=== PATIENT | female | born 1980 | race Caucasian/White ===

== ENCOUNTER 2016-08-03 15:01 | Emergency (ER) | payer OTHER ==
[~2016-08-03] VITALS: Ht 160 cm; Wt 59.4 kg
[2016-08-03] MEDS ORDERED: IMODIUM A-D2 M2 PO (17:12)
[2016-08-03] MEDS ORDERED: ZOFRAN ODT4 MG PO (17:12)
[2016-08-03 17:44] VITALS: BP 110/74
== END 2016-08-03 17:51 | disposition home or self-care (01) ==
LOC: EME 15:01
DX: F11.23 Opioid dependence with withdrawal (principal); R11.2 Nausea with vomiting, unspecified; R19.7 Diarrhea, unspecified; M79.1 Myalgia; F17.200 Nicotine dependence, unspecified, uncomplicated
CPT/HCPCS: 99281; 99284

== ENCOUNTER 2016-08-04 13:15 | Inpatient (IN) | payer OTHER ==
[~2016-08-04] VITALS: Ht 160 cm; Wt 60.6 kg
[~2016-08-04 13:15] MED LIST: IMODIUM A-D2 M2 PO; ZOFRAN ODT4 MG PO
[2016-08-04 15:57] LABS: HEMATOCRIT 40.5 % (36.0-46.0); MCH 28.6 PG (29.0-34.0); MCHC 33.1 G/DL (30.0-36.0); MCV 86.5 FL (83-99); MEAN PLAT.VOLUME 10.8 uM^3 (9.5-12.4); PLATELET COUNT 338 K/uL (156-360); RBC DIS.WIDTH-CV 14.7 % (11.8-14.6); RBC DIS.WIDTH-SD 46.7 % (39-53); RED BLOOD COUNT 4.68 M/uL (3.80-5.20); WHITE BLOOD COUNT 9.4 K/uL (4.1-10.2)
[2016-08-04 16:05] LABS: CHLORIDE 110 mEq/L (99-109); POTASSIUM 4.3 mEq/L (3.7-5.4); SODIUM 142 mEq/L (136-147)
[2016-08-04 16:07] LABS: GLUCOSE 92 mg/dL (70-99)
[2016-08-04 16:08] LABS: ANION GAP 10 MEQ/L (2-14)
[2016-08-04 16:09] LABS: TOTAL BILIRUBIN 0.4 mg/dL (0.0-1.0)
[2016-08-04 16:10] LABS: SERUM ETHYL ALCOHOL < 10 mg/dL
[2016-08-04 16:11] LABS: ALKALINE PHOSPHATASE 65 IU/L (3-129); GFR ESTIMATE (CALCULATED) > 59 mL/min/
[2016-08-04 16:12] LABS: UREA NITROGEN (BUN) 14 mg/dL (9-23)
[2016-08-04 17:22] LABS: ADD MIUA? YES; BILIRUBIN NEGATIVE; BLOOD NEGATIVE; COLOR AMBER ((YELLOW)); GLUCOSE (STRIP) NEGATIVE; KETONES NEGATIVE; LEUKOCYTES NEGATIVE; NITRITE POSITIVE; PROTEIN (STRIP) 100; SPECIFIC GRAVITY 1.032 (1.000-1.030); UROBILINOGEN 0.2 MG/DL (0.2-1.0)
[2016-08-04 17:38] LABS: ADD MEDTOX COMMENT Y; AMPHETAMINE PRESUMPTIVE POSITIVE (500 ng/mL); BARBITURATES NEGATIVE (200 ng/mL); BENZODIAZEPINES PRESUMPTIVE POSITIVE (150 ng/mL); COCAINE NEGATIVE (150 ng/mL); INTERNAL CONTROLS VALID? YES; METHADONE NEGATIVE (200 ng/mL); METHAMPHETAMINE PRESUMPTIVE POSITIVE (500 ng/mL); OPIATES (MORPHINE) PRESUMPTIVE POSITIVE (100 ng/mL); OXYCODONE NEGATIVE (100 ng/mL); PHENCYCLIDINE NEGATIVE (25 ng/mL); PROPOXYPHENE NEGATIVE (300 ng/mL); THC CANNABINOIDS NEGATIVE (50 ng/mL); TRICYCLIC ANTIDEPRESSANTS NEGATIVE (300 ng/mL)
[2016-08-04 17:46] LABS: BACTERIA 3+ /HPF; CASTS NONE SEEN /LPF; CRYSTALS NONE SEEN; EPITHELIAL CELLS 1+ /HPF; MUCUS 3+ /LPF; RED BLOOD CELLS 0-5 /HPF (0-5); WHITE BLOOD CELLS 0-5 /HPF (0-5)
[2016-08-04 18:07] LABS: OPIATES QUANTITATIVE VALUE 0 NG/ML
[2016-08-04 18:10] LABS: BENZODIAZEPINES, URINE SCREEN POSITIVE (200 ng/mL)
[2016-08-05 07:41] VITALS: BP 110/60
[2016-08-05 15:30] VITALS: BP 95/50
[2016-08-06 08:00] VITALS: BP 113/64
[2016-08-06 15:44] VITALS: BP 115/69
[2016-08-07 07:39] VITALS: BP 106/67
[2016-08-07] MEDS ORDERED: DESYREL100 MG PO ×2 (10:52→10:55)
[2016-08-07] MEDS ORDERED: CITALOPRAM HBR10 MG PO (10:52)
[2016-08-07] MEDS ORDERED: BACTRIM,SEPT1 TABLET PO (10:52)
== END 2016-08-07 11:20 | disposition home or self-care (01) | DRG 880 ==
LOC: EME 13:15 → 1WEST 19:57 → EDOF 19:57 → 1WEST 23:07
PROVIDERS: Emergency Medicine
DX: F41.1 Generalized anxiety disorder (principal); F11.29 Opioid dependence with unspecified opioid-induced disorder; N39.0 Urinary tract infection, site not specified; F15.19 Other stimulant abuse with unspecified stimulant-induced disorder; F13.19 Sedative, hypnotic or anxiolytic abuse with unspecified sedative, hypnotic or anxiolytic-induced disorder; F19.19 Other psychoactive substance abuse with unspecified psychoactive substance-induced disorder; F43.25 Adjustment disorder with mixed disturbance of emotions and conduct; F17.210 Nicotine dependence, cigarettes, uncomplicated; R45.1 Restlessness and agitation
CPT/HCPCS: 80053; 81003; 84702; 84999; 85027; 90837; 97150 GO; 97166 GO; 99281; 99285; G0480; J1630

== ENCOUNTER 2016-08-13 12:21 | Emergency (ER) | payer OTHER ==
[~2016-08-13] VITALS: Ht 160 cm; Wt 59.8 kg
[~2016-08-13 12:21] MED LIST changes: +BACTRIM,SEPT1 TABLET PO; +CITALOPRAM HBR10 MG PO; +DESYREL100 MG PO
[2016-08-13 14:05] LABS: BASOPHIL COUNT 0.1 K/uL (0-0.1); EOSINOPHIL (%) 1.8 % (0-5); EOSINOPHIL COUNT 0.2 K/uL (0-0.3); HEMATOCRIT 44.6 % (36.0-46.0); IMMATURE GRANULOCYTE (%) 0.5 % (0.0-0.7); IMMATURE GRANULOCYTE COUNT 0.1 K/uL; LYMPHOCYTE COUNT 3.5 K/uL (1.0-2.8); MCHC 31.6 G/DL (30.0-36.0); MCV 91.6 FL (83-99); MEAN PLAT.VOLUME 10.6 uM^3 (9.5-12.4); MONOCYTE (%) 6.3 % (3-12); MONOCYTE COUNT 0.8 K/uL (0-0.8); NEUTROPHIL (%) 63.2 % (45-76); PLATELET COUNT 410 K/uL (156-360); RBC DIS.WIDTH-CV 15.6 % (11.8-14.6); RBC DIS.WIDTH-SD 51.6 % (39-53); RED BLOOD COUNT 4.87 M/uL (3.80-5.20); WHITE BLOOD COUNT 12.6 K/uL (4.1-10.2)
[2016-08-13 14:12] LABS: CHLORIDE 108 mEq/L (99-109); POTASSIUM 4.5 mEq/L (3.7-5.4); SODIUM 139 mEq/L (136-147)
[2016-08-13 14:14] LABS: GLUCOSE 104 mg/dL (70-99)
[2016-08-13 14:15] LABS: ANION GAP 7 MEQ/L (2-14)
[2016-08-13 14:17] LABS: SERUM ETHYL ALCOHOL < 10 mg/dL
[2016-08-13 14:18] LABS: GFR ESTIMATE (CALCULATED) > 59 mL/min/
[2016-08-13 14:19] LABS: UREA NITROGEN (BUN) 17 mg/dL (9-23)
[2016-08-13 14:31] LABS: QUANTITATIVE HCG < 4.0 MIU/ML
[2016-08-13 14:47] VITALS: BP 112/72
== END 2016-08-13 15:28 | disposition home or self-care (01) ==
LOC: EME 12:21
PROVIDERS: Emergency Medicine
DX: F41.1 Generalized anxiety disorder (principal); F11.20 Opioid dependence, uncomplicated; F13.20 Sedative, hypnotic or anxiolytic dependence, uncomplicated; F14.10 Cocaine abuse, uncomplicated; F17.200 Nicotine dependence, unspecified, uncomplicated
CPT/HCPCS: 80048; 81003; 84702; 85025; 90837; 99281; 99284; G0480